=== PATIENT | female | born 1965 | race Caucasian/White ===

== ENCOUNTER → 2018-06-14 23:36 | Outpatient (CLI) | payer BC, SELFPAY ==
--- NOTE | 2018-06-13 | FLU_PTH ---
PATIENT: LUIS HINES LOC: [facility] U#:[id number] AGE/SX: 59/F ROOM: RE06/14/[address]: DONATO Justin : 1965 BED: DIS: SPEC #: [id number] RECD: 06/13/18 17:59 STATUS: PEDRO JACEY #: [id number] RAYO: 06/13/18 00:[address]: Lou Larkin DEPT: CYTOLOGY RECD BY: Izaiah Lee ENTERED: 06/16/18 08:13 SP TYPE: Fluid OTHR DR: DONATO Justin Tissues: A - Thyroid gland, NOS B - Thyroid gland, NOS Procedures: Special Stain Group II Surgery Specimen Level IV Cytospin Fluid Comments: @ Ordering doctor for SSII edited from NEFTALY to DR.LWANG Deal by ROSARIO at 06/16/18 1218 @ Ordering doctor for SUIV edited from NEFTALY to DR.LWANG Toyin PONCE at 06/16/18 1218 @ Ordering doctor for CYSPIN edited from NEFTALY to DR.LWANG Toyin PONCE at 06/16/18 1218 @ Submitting doctor edited from NEFTALY to DR.LWANG Toyin PONCE at 06/16/18 1218 HEADER OPERATION: Ultrasound-guided fine needle aspiration right thyroid PRE-OP DIAGNOSIS: Thyroid nodules TISSUE SUBMITTED: A - FNA right thyroid for cytology, B - FNA right thyroid 8 slides DIAGNOSIS CYTOLOGY A. Right thyroid nodule fluid for cytology, FNA (cytospin and cell block): Consistent with benign cystic follicular nodule. B. Right thyroid nodule, FNA (smears): Consistent with benign cystic follicular nodule. Adequate for evaluation. KIAN:amy 06/17/18 COMMENT Correlation with clinical, radiologic findings and appropriate follow up are necessary. CYTOLOGY STUDY Slides are reviewed. CYTOLOGY GROSS A - Received is 60 ml of brown cloudy fluid labeled with the patient's name and and designated per the requisition as right thyroid. Submitted for cytology preparation including cell block. B - Received are eight smears labeled with the patient's name and designated per the requisition as right thyroid. Submitted for staining. 06/16/18 TC:5 CPT: 04966, 95691, 46469
== END ==
LOC: LABSPEC 23:38
PROVIDERS: Family Provider Nurse Practitioner; PCP Nurse Practitioner; Visit Provider Nurse Practitioner
DX: E04.1 Nontoxic single thyroid nodule (principal)
CPT/HCPCS: 88108; 88305; 88313

== ENCOUNTER 2020-11-10 12:52 | Outpatient (RCR) | payer OTHER, SELFPAY | END 2020-12-27 23:59 | LOC: IMMUN 12:52 | PROVIDERS: PCP Family Medicine; Referring Provider Family Medicine; Visit Provider Family Medicine | DX: Z23 Encounter for immunization (principal) | CPT/HCPCS: 0001A; 0002A; 91300 ==

== ENCOUNTER → 2022-11-01 | Outpatient (CLI) | payer BC, SELFPAY ==
[2022-11-01 16:16] LABS: AST(SGOT) 13 U/L (15-37); Alanine Aminotransfer ALT/SGPT 17 U/L (13-56); Albumin, Serum 3.7 g/dL (3.2-5.0); Alkaline Phosphatase 108 U/L (45-117); Anion Gap 1 (5-15); BUN 9 mg/dL (7-18); BUN/Creat Ratio 10.1 RATIO (10-20); Calcium,Total 8.9 mg/dL (8.5-10.1); Chloride 107 mmol/L (98-107); EST Glomerular Filtration Rate 70 mL/min (>60); Est Glom Filt Rate - Afr Amer 84 mL/min (>60); Globulin 3.6 g/dL (2.2-4.2); Glucose 91 mg/dL (74-106); Potassium 4.3 mmol/L (3.5-5.1); Protein, Total 7.3 g/dL (6.4-8.2); Sodium Level 138 mmol/L (136-145)
== END | disposition home or self-care (01) ==
LOC: LABSPEC 15:43
PROVIDERS: PCP Family Medicine; Referring Provider Internal Medicine Hematology & Oncology; Visit Provider Internal Medicine Hematology & Oncology
DX: D69.3 Immune thrombocytopenic purpura (principal); Z79.899 Other long term (current) drug therapy
CPT/HCPCS: 80053